=== PATIENT | female | born 1940 | race Two or more races ===

== ENCOUNTER 2019-04-28 08:38 | Outpatient (CLI) | payer OTHER | END 2019-04-28 09:15 | disposition home or self-care (01) | LOC: TOM 08:38 → EDBD 08:38 → TOM 08:45 | DX: C18.7 Malignant neoplasm of sigmoid colon (principal); D12.2 Benign neoplasm of ascending colon; D12.4 Benign neoplasm of descending colon; C18.9 Malignant neoplasm of colon, unspecified | CPT/HCPCS: 74177; Q9965 ==

== ENCOUNTER 2019-05-04 16:28 | Inpatient (IN) | payer OTHER ==
[~2019-05-04] VITALS: Ht 160 cm; Wt 63.5 kg
[2019-05-16] MEDS ORDERED: ONGLYZA5 MG PO (13:29)
[2019-05-16] MEDS ORDERED: GLUCOPHAGE XR750 MG PO (13:29)
[2019-05-16] MEDS ORDERED: VIT D (13:30)
[2019-05-16] MEDS ORDERED: LIPIT (13:30)
[2019-05-16] MEDS ORDERED: ZIAC 10/6.25 MG1 TAB PO (13:30)
[2019-05-18] MEDS ORDERED: ATORVASTATIN CA10 MG PO (14:19)
[2019-05-18] MEDS ORDERED: VITAMIN D400 UNI5 (14:20)
[2019-05-21] MEDS ORDERED: HYOSCYAMINE0.125 M1 SL (12:55)
[2019-05-21] MEDS ORDERED: GAS-X125 M1 PO (12:56)
[2019-05-21] MEDS ORDERED: KETOROLAC TROME10 MG PO (12:57)
== END 2019-05-21 13:42 | disposition home or self-care (01) | DRG 334 ==
LOC: SURG 05-16 11:00 → O/R 05-18 11:10 → SURH 05-18 11:10 → SURG 05-18 18:00 → SURH 05-18 21:37
PROVIDERS: ADMIT Surgery
PROC: 07TB4ZZ Resection of Mesenteric Lymphatic, Percutaneous Endoscopic Approach (ICD-10-PCS; 2019-05-18)
PROC: 0DJD8ZZ Inspection of Lower Intestinal Tract, Via Natural or Artificial Opening Endoscopic (ICD-10-PCS; 2019-05-18)
PROC: 0DTP4ZZ Resection of Rectum, Percutaneous Endoscopic Approach (ICD-10-PCS; principal; 2019-05-18 18:00)
DX: C19 Malignant neoplasm of rectosigmoid junction (principal); R59.0 Localized enlarged lymph nodes; I10 Essential (primary) hypertension; E78.00 Pure hypercholesterolemia, unspecified; E11.9 Type 2 diabetes mellitus without complications

== ENCOUNTER 2019-05-17 11:00 | Day surgery (SDC) | payer OTHER ==
[~2019-05-17 11:00] MED LIST: GLUCOPHAGE XR750 MG PO; LIPIT; ONGLYZA5 MG PO; VIT D; ZIAC 10/6.25 MG1 TAB PO
[2019-05-18] MEDS ORDERED: ATORVASTATIN CA10 MG PO (14:19)
[2019-05-18] MEDS ORDERED: VITAMIN D400 UNI5 (14:20)
== END 2019-05-17 17:10 | disposition home or self-care (01) ==
LOC: AMB-ENDOS 11:00
DX: C19 Malignant neoplasm of rectosigmoid junction (principal)

== ENCOUNTER 2020-07-19 06:05 | Day surgery (SDC) | payer OTHER ==
[~2020-07-19 06:05] MED LIST changes: +ATORVASTATIN CA10 MG PO; +GAS-X125 M1 PO; +HYOSCYAMINE0.125 M1 SL; +KETOROLAC TROME10 MG PO; +VITAMIN D400 UNI5
== END 2020-07-19 11:55 | disposition home or self-care (01) ==
LOC: AMB-ENDOS 06:05 → ADM 13:30 → AMB-ENDOS 13:30
PROVIDERS: ATTEND Surgery
DX: D12.4 Benign neoplasm of descending colon (principal); Z20.828 Contact with and (suspected) exposure to other viral communicable diseases